=== PATIENT | male | born 1990 | race Caucasian/White ===

== ENCOUNTER → 2021-12-28 08:24 | Outpatient (CLI) | payer BC, SELFPAY ==
--- NOTE | ~2021-12-28 | XR_ITS ---
XR hip RT min 2V DATE: 12/28/2021 08:56 INDICATION: Right hip pain for one month TECHNIQUE: AP, lateral and crosstable lateral views COMPARISON: None FINDINGS: No fracture or dislocation, avascular necrosis or bone destruction. Right hip joint space i s well preserved. The pubic symphysis and right sacroiliac joint are intact. Pseudoarthrosis is noted on the right at L5-S1. 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 IMPRESSION: Transitional fifth lumbar vertebra with sacralization/pseudoarthros is on the right
--- NOTE | ~2021-12-28 | XR_ITS ---
XR sacrum coccyx min 2V DATE: 12/28/2021 08:56 INDICATION: Right lateral hip, sacral pain for one month TECHNIQUE: AP, angled AP and lateral views COMPARISON: None FINDINGS: There is a transitional fifth lumbar vertebra with sacralization and pseudoarthrosis on the right. No sacral or coccygeal fracture or bone destruction is detected. IMPRESSION: Transitional lumbosacral vertebra Reviewed, dictated and finalized at location A.
== END ==
PROVIDERS: PCP Emergency Medicine; Visit Provider Emergency Medicine
DX: M25.551 Pain in right hip (principal); Q76.49 Other congenital malformations of spine, not associated with scoliosis
CPT/HCPCS: 72220; 73502

== ENCOUNTER → 2022-01-25 12:27 | Outpatient (CLI) | payer BC, SELFPAY ==
--- NOTE | ~2022-01-25 | US_ITS ---
US soft tissue head and neck 01/25/2022 13:07 Indication: Cervical lymphadenopathy Procedure: High-resolution bilateral ultrasound of the neck. Comparison: No prior studies for comparison. Findings: There is bilateral cervical lymphadenopathy including the areas of palpable concern. The la rgest lymph node on the right measures 1.9 x 0.6 x 1 cm. Largest on the left measures 1.6 x 0.6 x 1 c m. No abnormal fluid collections. Impression: 1: Bilateral cervical lymphadenopathy. Consider correlation with contrast-enhanced CT neck. Reviewed, dictated and finalized at location A. SLATOR AND INTERPRETER Impression: 1: Bilateral cervical lymphadenopathy. Consider correlation with contrast-enhan sybil CT neck.
== END ==
PROVIDERS: PCP Surgery; Visit Provider Surgery
DX: R59.0 Localized enlarged lymph nodes (principal)
CPT/HCPCS: 76536

== ENCOUNTER 2022-02-03 09:52 | Outpatient (CLI) | payer BC, SELFPAY ==
--- NOTE | ~2022-02-03 | CT_ITS ---
EXAMINATION: CT soft tissue neck w con DATE: 02/03/2022 10:19 INDICATION: Cervical lymphadenopathy. TECHNIQUE: Computed tomography (CT) of the neck was performed with 75 mL Omnipaque-350 intravenous co ntrast. Automated exposure control and iterative reconstruction technique were employed. The dose-ernestina gth product was 424.09 mGy-cm. COMPARISON: Ultrasound 01/25/2022 FINDINGS: There are no pathologically enlarged lymph nodes. There is no abnormal mass. The cervical c arotid arteries are normal. The bones are unremarkable. IMPRESSION: 1. No lymphadenopathy. Reviewed, dictated and finalized at location A. EDICAL ENGINEER IMPRESSION: 1. No lymphadenopathy.
== END 2022-02-03 09:53 ==
LOC: MICIMG 09:54
PROVIDERS: PCP Emergency Medicine; Visit Provider Surgery
DX: R59.0 Localized enlarged lymph nodes (principal)
CPT/HCPCS: 70491; Q9967